=== PATIENT | female | born 1970 | race Caucasian/White ===

== ENCOUNTER 2018-02-20 09:11 | Outpatient (CLI) | payer OTHER | END 2018-02-20 09:12 | disposition home or self-care (01) | LOC: BICMAMMO 09:11 | PROVIDERS: ATTEND Internal Medicine | DX: Z12.31 Encounter for screening mammogram for malignant neoplasm of breast (principal); Z80.3 Family history of malignant neoplasm of breast | CPT/HCPCS: 77063; 77067 ==

== ENCOUNTER 2019-07-14 08:17 | Outpatient (CLI) | payer OTHER ==
--- NOTE | 2019-07-14 09:04 | MMO ---
Bilateral MAMMO Bilat Screen [facility]. CLINICAL HISTORY: Patient is 49 years old and is seen for screening. The patient has the following family history of breast cancer: maternal aunt. The patient has no personal history of cancer. VIEWS: The views performed were: bilateral craniocaudal with tomosynthesis and bilateral mediolateral oblique with tomosynthesis. FILMS COMPARED: The present examination has been compared to prior imaging studies performed at [facility] on 11/18/2014, 12/28/2015, 02/13/2017 and 02/20/2018. This study has been interpreted with the assistance of computer-aided detection. MAMMOGRAM FINDINGS: The breasts are extremely dense, which may lower the sensitivity of mammography. There are no suspicious masses, suspicious calcifications, or new areas of architectural distortion. IMPRESSION: THERE IS NO MAMMOGRAPHIC EVIDENCE OF MALIGNANCY. A ROUTINE FOLLOW-UP MAMMOGRAM IN 1 YEAR IS RECOMMENDED. THE RESULTS OF THIS EXAM WERE SENT TO THE PATIENT. ACR BI-RADS Category 1 - Negative MAMMOGRAPHY NOTE: 1. A negative mammogram report should not delay a biopsy if a dominant of clinically suspicious mass is present. 2. Approximately 10% to 15% of breast cancers are not detected by mammography. 3. Adenosis and dense breasts may obscure an underlying neoplasm. Reported by: Fer GOMEZ Electonically Signed: [id number]
== END 2019-07-14 08:18 | disposition home or self-care (01) ==
LOC: BICMAMMO 08:17
PROVIDERS: ATTEND Obstetrics & Gynecology
DX: Z12.31 Encounter for screening mammogram for malignant neoplasm of breast (principal)
CPT/HCPCS: 77063; 77067

== ENCOUNTER 2020-08-17 15:02 | Outpatient (CLI) | payer OTHER ==
--- NOTE | 2020-08-17 15:56 | MMO ---
Bilateral MAMMO Bilat Screen [facility]. CLINICAL HISTORY: Patient is 50 years old and is seen for screening. The patient has the following family history of breast cancer: maternal aunt. The patient has no personal history of cancer. VIEWS: The views performed were: bilateral craniocaudal with tomosynthesis and bilateral mediolateral oblique with tomosynthesis. FILMS COMPARED: The present examination has been compared to prior imaging studies performed at [facility] on 12/28/2015, 02/13/2017, 02/20/2018 and 07/14/2019. This study has been interpreted with the assistance of computer-aided detection. MAMMOGRAM FINDINGS: The breasts are heterogeneously dense, which could obscure a lesion on mammography. There is an asymmetry seen in the upper-outer region of the right breast. In the left breast, there are no suspicious masses, calcifications or areas of architectural distortion. IMPRESSION: ASYMMETRY IN THE RIGHT BREAST REQUIRES ADDITIONAL EVALUATION. AN ULTRASOUND EXAM IS RECOMMENDED IF NEEDED. ADDITIONAL IMAGING. THE RESULTS OF THIS EXAM WERE SENT TO THE PATIENT. ACR BI-RADS Category 0 - Incomplete: Need additional imaging evaluation. [facility] will notify the patient of the need for additional imaging services. MAMMOGRAPHY NOTE: 1. A negative mammogram report should not delay a biopsy if a dominant of clinically suspicious mass is present. 2. Approximately 10% to 15% of breast cancers are not detected by mammography. 3. Adenosis and dense breasts may obscure an underlying neoplasm. Reported by: YANIRA AVILES MD Electonically Signed: [id number]
== END 2020-08-17 15:03 | disposition home or self-care (01) ==
LOC: BICMAMMO 15:02
PROVIDERS: ATTEND Family Medicine
DX: Z12.31 Encounter for screening mammogram for malignant neoplasm of breast (principal); N64.89 Other specified disorders of breast; Z80.3 Family history of malignant neoplasm of breast
CPT/HCPCS: 77063; 77067

== ENCOUNTER 2020-09-01 09:33 | Outpatient (CLI) | payer BC, OTHER ==
--- NOTE | 2020-09-01 10:43 | MMO ---
Right Breast MAMMO Unilat Diag [facility]. CLINICAL HISTORY: Patient is 50 years old and is seen for additional evaluation requested from prior study. The patient has the following family history of breast cancer: maternal aunt. The patient has no personal history of cancer. VIEWS: The views performed were: right craniocaudal spot compression with tomosynthesis; right mediolateral oblique spot compression with tomosynthesis; and right mediolateral with tomosynthesis. FILMS COMPARED: The present examination has been compared to prior imaging studies performed at [facility] on 02/20/2018, 07/14/2019, 08/17/2020 and 09/01/2020. This study has been interpreted with the assistance of computer-aided detection. MAMMOGRAM FINDINGS: The breast is heterogeneously dense, which could obscure a lesion on mammography. The questionable asymmetric density in upper outer region did not persist with the additional views. There are no suspicious masses, suspicious calcifications, or new areas of architectural distortion. IMPRESSION: THERE IS NO MAMMOGRAPHIC EVIDENCE OF MALIGNANCY. A ROUTINE FOLLOW-UP MAMMOGRAM IN 1 YEAR IS RECOMMENDED. THE RESULTS OF THIS EXAM WERE SENT TO THE PATIENT. ACR BI-RADS Category 2 - Benign finding MAMMOGRAPHY NOTE: 1. A negative mammogram report should not delay a biopsy if a dominant of clinically suspicious mass is present. 2. Approximately 10% to 15% of breast cancers are not detected by mammography. 3. Adenosis and dense breasts may obscure an underlying neoplasm. Reported by: MARINA ARRINGTON MD Electonically Signed: [id number]
--- NOTE | 2020-09-01 11:44 | ULT ---
RIGHT BREAST ULTRASOUND: HISTORY: Followup abnormal mammogram. COMPARISON: 09/01/2020 and screening study, 08/17/2020. FINDINGS: Asymmetric density, area of concern in the upper outer right breast is evaluated with ultrasound with exam performed from the 9 o'clock to 12 o'clock position of the right breast. NO evidence for solid or cystic mass. No evidence for malignancy. IMPRESSION: BIRADS category 2, benign findings. Continued annual followup screening mammograms. POS: OFF
== END 2020-09-01 09:34 | disposition home or self-care (01) ==
LOC: BICMAMMO 09:33
PROVIDERS: ATTEND Obstetrics & Gynecology
DX: R92.2 Inconclusive mammogram (principal)
CPT/HCPCS: G0279